=== PATIENT | female | born 1930 | race Caucasian/White ===

== ENCOUNTER → 2018-06-27 | Outpatient (CLI) | payer MEDICARE ==
[2018-06-27 11:17] LABS: Basophils % (A) 0 %; Eosinophils # (A) 0.2 k/uL (0-0.7); Eosinophils % (A) 3 %; HCT 33.4 % (34.0-46.0); HGB 10.1 gm/dL (11.4-16.0); Hypochromasia Marked; Lymphocytes # (A) 1.3 k/uL (1.0-4.8); Lymphocytes % (A) 24 %; MCH 33.4 pg (25.0-35.0); MCHC 30.2 g/dL (31.0-37.0); MCV 110.6 fL (80.0-100.0); Macrocytosis Marked; Mean Platelet Volume 7.5; Monocytes # (A) 0.4 k/uL (0-1.0); Monocytes % (A) 7 %; Neutrophils # (A) 3.4 k/uL (1.3-7.7); Neutrophils % (A) 64 %; Platelet Count 151 k/uL (150-450); RBC 3.02 m/uL (3.80-5.40); RDW 15.6 % (11.5-15.5); WBC 5.3 k/uL (3.8-10.6)
[2018-06-27 11:22] LABS: Albumin 3.7 g/dL (3.5-5.0); Calcium 9.3 mg/dL (8.4-10.2); Potassium 4.5 mmol/L (3.5-5.1); Total Bilirubin 0.7 mg/dL (0.2-1.3); Total Protein 6.9 g/dL (6.3-8.2)
[2018-06-27 12:56] LABS: Polychromasia Present
--- NOTE | 2018-06-27 13:44 | CT ---
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 Automated Exposure Control for Dose Reduction was Utilized. CONTRAST: CTA scan of the thorax, abdomen and pelvis extending into bilateral lower extremities below level of knees performed with IV Contrast, patient injected with 100 ml mL of Isovue 370. Three-D reconstructe d images are created on independent workstation. FINDINGS: VASCULAR: Visualized central pulmonary arteries show no filling defect. There is mild to moderate mix ed plaque in the aortic arch. There is bovine type arch which is normal variant. Mild to moderate bia cified plaque extends into aortic arch branch vessels without significant stenosis identified. There is ectatic course to the descending thoracic aorta with mild to moderate calcified plaque. There is a neurysmal change to the distal thoracic aorta measuring up to 3.4 cm axial image 27. The upper abdominal aorta at site of diaphragmatic hiatus measures 3.9 x 4.4 cm transversely with mod erate peripheral noncalcified plaque. Aneurysmal change to the abdominal aorta extends through the bi furcation. Maximum diameter is 5.5 cm transversely axial image 64. Length of aneurysm is roughly 9.0 cm coronal image 105. There is severe noncalcified plaque occupying roughly 50% of the surrounding l umen at this level. Moderate to severe calcified plaque is seen in the common iliac arteries bilaterally without signific ant stenosis. There is moderate calcified plaque in the left internal/external iliac arteries without significant stenosis. 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 Moderate to severe plaque at origin of right external iliac a rtery is present without significant stenosis. More moderate calcified plaque is seen in distal aspec ts. Common femoral arteries bilaterally show moderate to severe calcified plaque. There is bifurcation in to right superficial and deep femoral arteries with moderate to severe calcified plaque along course of the right superficial femoral artery, cannot exclude areas of significant stenosis. More mild plaq ue is seen in visualized portion of the popliteal artery. There is satisfactory bifurcation and subse quent trifurcation without significant plaque or stenosis. Left common femoral artery shows moderate calcified plaque at groin level. There is bifurcation into deep and superficial femoral arteries. There is moderate to severe calcified plaque along course of t he left superficial femoral artery without obvious stenosis seen. Popliteal artery shows more mild to moderate calcified plaque. Suboptimal evaluation due to artifact from adjacent knee prosthesis. Ther e is visualization of patent bifurcation and subsequent trifurcation below level of knee noted. There is patent celiac access, SMA, and left-sided renal artery. Patent right renal artery and JOSE ar e not visualized. LUNGS: There is small right pleural effusion and tiny left pleural effusion. There is respiratory mot ion artifact degradation making evaluation suboptimal. There is bibasilar linear scarring and/or atel ectasis just above diaphragm. No suspicious nodules or masses are present. MEDIASTINUM: There are no greater than 1 cm hilar or mediastinal lymph nodes. No pericardial effusi on is seen. Cardiomegaly is identified. There is moderate to severe right atrial dilatation. There is moderate right ventricular dilatation. Pacemaker is noted. Sternal wires and mediastinal clips are s een. Coronary artery dilatation is present which is noted marker for coronary artery disease. OTHER: No additional significant abnormality is seen. LIVER/GB: Cholecystectomy clips are present. There is perihepatic ascites leg right lateral margin. PANCREAS: No significant abnormality is seen. SPLEEN: Small amount of perisplenic ascites left lateral margin is present. ADRENALS: No significant abnormality is seen. KIDNEYS: Asymmetric end-stage atrophy of right kidney is noted. BOWEL: Evaluation bowel is suboptimal secondary to lack of enteric contrast. Stomach is poorly disten ded and thus suboptimally evaluated. Surgical sutures are seen from bowel anastomosis right midabdome n axial image 64. There are diverticula throughout the colon most prominent in the redundant sigmoid colon. GENITAL ORGANS: There is lobulated contour to the uterus. There are prominent or enlarged draining ov alice veins bilaterally. Cannot exclude pelvic congestion syndrome. LYMPH NODES: No greater than 1cm abdominal or pelvic lymph nodes are appreciated. OSSEOUS STRUCTURES: Metallic hardware from left knee arthroplasty causes streak artifact. There is mo derate degenerative change in the right knee joint. There is fairly advanced degenerative changes in both hip joints with joint space loss. Demineralization is present. OTHER: Mild haziness and calcification anterior pelvis is noted near axial image 94. There is moderat e amount of free fluid in pelvic cul-de-sac axial image 96 IMPRESSION: There is ectatic course to the distal descending thoracic aorta with some aneurysmal shaikh ge. There is aneurysmal change to the abdominal aorta with significant surrounding noncalcified plaqu e. Aneurysm does not extend into iliac bifurcation. Further details as noted above..
[2018-06-27 19:12] LABS: Hemoglobin A1C 7.9 % (4.0-6.0)
== END | disposition home or self-care (01) ==
LOC: RADCTMAIN 10:11
PROVIDERS: ATTEND Surgery
DX: I71.4 Abdominal aortic aneurysm, without rupture (principal); I71.2 Thoracic aortic aneurysm, without rupture; J90 Pleural effusion, not elsewhere classified; J98.4 Other disorders of lung; I11.9 Hypertensive heart disease without heart failure; I25.10 Atherosclerotic heart disease of native coronary artery without angina pectoris; N26.1 Atrophy of kidney (terminal); K57.30 Diverticulosis of large intestine without perforation or abscess without bleeding; D64.9 Anemia, unspecified; Z90.49 Acquired absence of other specified parts of digestive tract; Z95.0 Presence of cardiac pacemaker; E78.00 Pure hypercholesterolemia, unspecified
CPT/HCPCS: 80053; 80061; 84443; 85025; 83036; 71275; 36415; 74174; Q9967